=== PATIENT | male | born 1985 | race Two or more races ===

== ENCOUNTER 2019-07-20 04:03 | Emergency (ER) | payer OTHER ==
[~2019-07-20] VITALS: Ht 188 cm; Wt 121.1 kg
[~2019-07-20 04:03] MED LIST: CATAFLAM50 MG; CETIRIZINE PO; FLEXERIL10 MG PO; PSEUDOEPHEDRINE PO; TORADOL60 MG IM; VOLTAREM 50 MG PO
[2019-07-20] MEDS ORDERED: CLONAZEPAM1 MG PO (06:48)
== END 2019-07-20 07:13 | disposition home or self-care (01) ==
LOC: ER 04:03
DX: F41.8 Other specified anxiety disorders (principal); R06.02 Shortness of breath; Z03.818 Encounter for observation for suspected exposure to other biological agents ruled out

== ENCOUNTER 2022-07-26 08:00 | Day surgery (SDC) | payer OTHER ==
[~2022-07-26 08:00] MED LIST changes: +CLONAZEPAM1 MG PO
== END 2022-07-26 13:20 | disposition home or self-care (01) ==
LOC: AMB-ENDOS 08:00
PROVIDERS: ATTEND Colon & Rectal Surgery
DX: K62.5 Hemorrhage of anus and rectum (principal); K63.5 Polyp of colon; K52.89 Other specified noninfective gastroenteritis and colitis; R19.4 Change in bowel habit; Z20.822 Contact with and (suspected) exposure to COVID-19